=== PATIENT | female | born 1970 | race African-American/Black ===

== ENCOUNTER 2023-07-01 08:05 | Outpatient (CLI) | payer SELFPAY | END 2023-07-01 08:06 | disposition home or self-care (01) | LOC: NFLDREF 07-02 05:49 | PROVIDERS: Visit Provider Physician Assistant Medical | DX: R30.0 Dysuria (principal); R05.9 Cough, unspecified; J45.909 Unspecified asthma, uncomplicated; N39.0 Urinary tract infection, site not specified; J32.9 Chronic sinusitis, unspecified; B37.9 Candidiasis, unspecified; J45.21 Mild intermittent asthma with (acute) exacerbation; N30.00 Acute cystitis without hematuria | CPT/HCPCS: 87086 ==

== ENCOUNTER 2023-08-18 17:36 | Outpatient (CLI) | payer SELFPAY | END 2023-08-18 17:37 | disposition home or self-care (01) | PROVIDERS: Visit Provider Family Medicine | DX: R10.2 Pelvic and perineal pain (principal) | CPT/HCPCS: 86592; 86703; 87086; 87491; 87591 ==